=== PATIENT | male | born 1955 | race Caucasian/White ===

== ENCOUNTER 2023-07-05 18:50 | Inpatient (IN) | payer MEDICARE, MEDICAID ==
[~2023-07-05] VITALS: Ht 185.4 cm; Wt 78.3 kg
[~2023-07-05 18:50] MED LIST: ACET325T66 PO; ALBU8.5H17 IH; ALEN70TA80 PO; ASPI81TA49 PO; ATRO2DRO SL; BISA-155 PO; BISA10SU RC; CALC1CAP21 PO; CLOZ100T21 PO; DIVA500T4 PO; DOCU100C40 PO; FLUO-212 PO; FLUT12AE9 INH; GABA300C PO; LEVO88CA4 PO; LORA-268 PO; LOSA-416 PO; MAGN400O6 PO; MULT-1085 PO; NA P133E4 RC; NITR0.4T SL; PANT40TA54 PO; POLY17PO59 PO; SELE207S7 TOP; TRIH5TAB3 PO
[2023-07-05] MEDS ORDERED: normal saline 1000ML IV soln IV ONE (18:55)
[2023-07-05 19:18] LABS: EOSINOPHILS % (AUTO) 0 % (0-6); HEMOGLOBIN 10.4 g/dl (14.0-17.9); MEAN PLATELET VOLUME 7.6 FL (7.4-10.4); MONOCYTES # (AUTO) 1.9 X10'3 (0-0.9); NEUTROPHILS % (AUTO) 87.7 % (42-75); RED CELL DISTRIBUTION WIDTH 13.9 % (11.5-14.5)
[2023-07-05 19:19] LABS: BASOPHILS % (AUTO) 0 % (0-1); LYMPHOCYTES # (AUTO) 0.5 X10'3 (1.1-4.8); LYMPHOCYTES % (AUTO) 2.5 % (21-51); MEAN CORPUSCULAR HEMOGLOBIN 30.9 PG (27.0-31.0); MEAN CORPUSCULAR HGB CONC 34.7 g/dL (33.0-36.5); MEAN CORPUSCULAR VOLUME 89.2 FL (78-98); MONOCYTES % (AUTO) 9.8 % (2-12); NEUTROPHILS # (AUTO) 16.8 X10'3 (1.8-7.7); PLATELET COUNT 366 X10'3 (140-440); RED BLOOD COUNT 3.36 X10'6 (4.70-6.10); WHITE BLOOD COUNT 19.1 X10'3 (4.5-11.0)
[2023-07-05 19:36] LABS: ALANINE AMINOTRANSFERASE 33 U/L (12-78); ALBUMIN 2.8 G/DL (3.4-5.0); ALBUMIN/GLOBULIN RATIO 0.7 (1.1-1.5); ALKALINE PHOSPHATASE 82 IU/L (46-116); ANION GAP 11 (8-16); ASPARTATE AMINO TRANSFERASE 88 U/L (10-37); BILIRUBIN,TOTAL 0.4 MG/DL (0.1-1.0); BLOOD UREA NITROGEN 29 MG/DL (7-18); BUN/CREATININE RATIO 27.4 (10.0-20.0); CALCIUM 8.7 MG/DL (8.5-10.1); CHLORIDE 89 MMOL/L (99-107); CREATININE 1.06 MG/DL (0.60-1.10); GLUCOSE 106 MG/DL (70-104); MAGNESIUM 1.8 MG/DL (1.5-2.4); POTASSIUM 4.2 MMOL/L (3.5-5.1); SODIUM 123 MMOL/L (135-145); TOTAL CARBON DIOXIDE 23.5 MMOL/L (24-32); TOTAL PROTEIN 6.9 G/DL (6.4-8.2); eCRCL 73 ML/MIN; eGFR 70 ML/MIN
[2023-07-05 19:53] LABS: PLATELET ESTIMATE NORMAL; TOTAL CELLS COUNTED 100
[2023-07-05 19:54] LABS: BURR CELLS FEW; LARGE PLATELETS FEW; SCHISTOCYTES FEW; TOXIC GRANULATION 1+; TOXIC VACUOLATION 1+
[2023-07-05] MEDS ORDERED: azithromycin/NS 500mg/250ml 250 ML IV SCH (21:04)
[2023-07-05] MEDS ORDERED: CefTRIAXone 2gm/D5W 50ml BAG 50 ML IV ONE (21:05)
[2023-07-05 21:52] LABS: BILIRUBIN,URINE NEGATIVE (Neg); CLARITY,URINE CLEAR (Clear); COLOR,URINE YELLOW (Yellow); GLUCOSE, URINE NEGATIVE (Neg); KETONES,URINE 15 mg/dl (Neg); LEUKOCYTE ESTERASE ,URINE NEGATIVE (Neg); NITRITES, URINE NEGATIVE (Neg); OCCULT BLOOD,URINE NEGATIVE (Neg); PROTEIN,URINE NEGATIVE (Neg); UROBILINOGEN,URINE 0.2 E.U/dL (0.2-1.0)
[2023-07-05 21:54] LABS: UA COLLECTION TYPE URINAL
[2023-07-06] VITALS (9 sets, daily range): BP systolic 132–175; BP diastolic 68–95; PULSE 81–97; RESP 15–20; TEMP 97.6–97.8; O2SAT 95–99
[2023-07-06] MEDS ORDERED: diphenhydrAMINE 25mg capsule PO PRN (00:35)
[2023-07-06] MEDS ORDERED: ondansetron/PF 4mg/2ml inj IV PRN (00:35)
[2023-07-06] MEDS ORDERED: acetaminophen 650mg rectal suppository RC PRN (00:35)
[2023-07-06] MEDS ORDERED: HYDROcodone/acetaminophen 5mg/325mg tablet PO PRN (00:35)
[2023-07-06] MEDS ORDERED: bisacodyl 10mg suppository rectal RC PRN (00:35)
[2023-07-06] MEDS ORDERED: mag hydrox/Alum hydrox/simeth 30ml oral suspension PO PRN (00:35)
[2023-07-06] MEDS ORDERED: ipratropium/albuterol 3ml nebule NEB PRN (00:35)
[2023-07-06] MEDS: normal saline 1000ml 1,000 ML IV SCH ×3 (00:35→19:58)
[2023-07-06] MEDS ORDERED: ondansetron 4mg rapidly disintigrating tab PO PRN (00:35)
[2023-07-06] MEDS ORDERED: magnesium hydroxide 30ml (MOM) UD suspension PO PRN (00:35)
[2023-07-06] MEDS ORDERED: morphine 2 MG/ML inj. syringe IV PRN (00:35)
[2023-07-06] MEDS ORDERED: diphenhydrAMINE 50 mg/ml inj IV PRN (00:35)
[2023-07-06] MEDS ORDERED: acetaminophen 325mg tablet PO PRN ×2 (00:35)
[2023-07-06 01:43] LABS: APTT 38 SECONDS (22-32); D-DIMER 0.62 MG/L FEU (0-0.50); HEMOGLOBIN A1C 5.7 % (4.5-6.2); INR 1.1 INR; PROTHROMBIN TIME 11.7 SECONDS (9.0-12.0)
[2023-07-06 01:54] LABS: MAGNESIUM 1.9 MG/DL (1.5-2.4); PRO BRAIN NATRIURETIC PEPTIDE 851 PG/ML (0-125); VALPROATE 42 UG/ML (50-100)
[2023-07-06] MEDS: docusate sod 100mg capsule PO SCH ×2 (08:01→19:53)
[2023-07-06] MEDS: heparin, porcine 5000 units/ml vial SQ SCH ×2 (08:02→20:05)
[2023-07-06 10:04] LABS: ALBUMIN 2.7 G/DL (3.4-5.0); ANION GAP 12 (8-16); BLOOD UREA NITROGEN 15 MG/DL (7-18); BUN/CREATININE RATIO 16.7 (10.0-20.0); CALCIUM 8.3 MG/DL (8.5-10.1); CHLORIDE 95 MMOL/L (99-107); CHOL/HDL RATIO 2.2 (0.00-4.99); CHOLESTEROL 110 MG/DL (0-200); GLUCOSE 111 MG/DL (70-104); HDL CHOLESTEROL 49 MG/DL (35-60); LDL CHOLESTEROL 40 MG/DL (50-100); POTASSIUM 3.3 MMOL/L (3.5-5.1); SODIUM 129 MMOL/L (135-145); THYROID STIMULATING HORMONE 2.01 ulU/ml (0.34-4.50); TOTAL CARBON DIOXIDE 22.1 MMOL/L (24-32); TRIGLYCERIDES 47 MG/DL (20-135); eCRCL 89 ML/MIN; eGFR 84 ML/MIN
[2023-07-06 10:20] LABS: OSMOLALITY 268 MOSM/K (280-300)
[2023-07-06] MEDS ORDERED: ZOLP5TAB2 PO (14:37)
[2023-07-06] MEDS ORDERED: potassium Cl 40MEQ/1/2NS 520ml 520 ML IV PRN ×2 (20:20)
[2023-07-06] MEDS ORDERED: losartan 50mg tablet PO ONE (20:20)
[2023-07-06] MEDS ORDERED: potassium Cl 20 mEq SR tablet PO PRN ×2 (20:20)
[2023-07-06] MEDS ORDERED: magnesium 4gm in 100ml NS 100 ML IV PRN (20:25)
[2023-07-06] MEDS ORDERED: magnesium Cl slow-release 64mg tablet PO PRN (20:25)
[2023-07-06] MEDS ORDERED: magnesium 2GM in 50ml NS 50 ML IV PRN (20:25)
[2023-07-06] MEDS: CefTRIAXone/D5W-Rocephin 1gm 50 ML IV SCH (20:27)
[2023-07-06] MEDS ORDERED: temazepam 15mg capsule PO PRN (21:00)
[2023-07-06] MEDS: azithromycin/NS 500mg/250ml 250 ML IV SCH (22:36)
[2023-07-07] VITALS (13 sets, daily range): BP systolic 138–151; BP diastolic 78–86; PULSE 70–100; RESP 16–20; TEMP 97.1–98.2; O2SAT 95–100
[2023-07-07] MEDS ORDERED: bisacodyl 5mg tablet.DR PO PRN (05:35)
[2023-07-07] MEDS ORDERED: non-formulary drug (Alendronate Sodium 1 TAB) PO SCH (05:35)
[2023-07-07] MEDS ORDERED: bisacodyl 10mg suppository rectal RC PRN (05:35)
[2023-07-07] MEDS ORDERED: non-formulary drug (Na Phos,M-B/Na Phos,Di-Ba* (Fleet's Enema*) 1 BOTTLE) RC PRN (05:35)
[2023-07-07] MEDS ORDERED: albuterol 2.5 MG/3 ML nebule NEB PRN (05:45)
[2023-07-07] MEDS ORDERED: CLOZ50TA9 PO (06:06)
[2023-07-07 06:27] LABS: BASOPHILS % (AUTO) 0.3 % (0-1); EOSINOPHILS # (AUTO) 0.1 X10'3 (0-0.9); EOSINOPHILS % (AUTO) 0.5 % (0-6); HEMATOCRIT 32.7 % (42.0-52.0); LYMPHOCYTES # (AUTO) 1.1 X10'3 (1.1-4.8); MEAN CORPUSCULAR HEMOGLOBIN 30.4 PG (27.0-31.0); MEAN CORPUSCULAR HGB CONC 33.8 g/dL (33.0-36.5); MEAN PLATELET VOLUME 8.9 FL (7.4-10.4); MONOCYTES # (AUTO) 1.5 X10'3 (0-0.9); MONOCYTES % (AUTO) 12.4 % (2-12); NEUTROPHILS # (AUTO) 9.5 X10'3 (1.8-7.7); NEUTROPHILS % (AUTO) 77.8 % (42-75); PLATELET COUNT 406 X10'3 (140-440); RED BLOOD COUNT 3.63 X10'6 (4.70-6.10); WHITE BLOOD COUNT 12.2 X10'3 (4.5-11.0)
[2023-07-07 06:30] LABS: ALANINE AMINOTRANSFERASE 34 U/L (12-78); ALBUMIN 2.6 G/DL (3.4-5.0); ALBUMIN/GLOBULIN RATIO 0.6 (1.1-1.5); ALKALINE PHOSPHATASE 73 IU/L (46-116); ANION GAP 7 (8-16); ASPARTATE AMINO TRANSFERASE 61 U/L (10-37); BILIRUBIN,TOTAL 0.3 MG/DL (0.1-1.0); BLOOD UREA NITROGEN 10 MG/DL (7-18); BUN/CREATININE RATIO 14.1 (10.0-20.0); CALCIUM 8.6 MG/DL (8.5-10.1); CHLORIDE 98 MMOL/L (99-107); CHOL/HDL RATIO 2.8 (0.00-4.99); CHOLESTEROL 110 MG/DL (0-200); CREATININE 0.71 MG/DL (0.60-1.10); GLUCOSE 85 MG/DL (70-104); HDL CHOLESTEROL 39 MG/DL (35-60); LDL CHOLESTEROL 44 MG/DL (50-100); POTASSIUM 3.5 MMOL/L (3.5-5.1); SODIUM 130 MMOL/L (135-145); TOTAL CARBON DIOXIDE 25.3 MMOL/L (24-32); TOTAL PROTEIN 7.1 G/DL (6.4-8.2); TRIGLYCERIDES 71 MG/DL (20-135); eCRCL 113 ML/MIN; eGFR > 90 ML/MIN
[2023-07-07] MEDS: docusate sod 100mg capsule PO SCH ×4 (08:00→21:02)
[2023-07-07] MEDS ORDERED: non-formulary drug (Clozapine 1 TAB) PO SCH (08:00)
[2023-07-07] MEDS: polyethylene glycol 3350 17gm powd pack PO SCH (08:28)
[2023-07-07] MEDS: heparin, porcine 5000 units/ml vial SQ SCH ×2 (08:29→21:07)
[2023-07-07] MEDS: gabapentin 300mg capsule PO SCH ×2 (08:30→21:03)
[2023-07-07] MEDS: atropine sulfate 1% ophthalmic drops SL SCH ×2 (08:30→21:08)
[2023-07-07] MEDS: pantoprazole 40mg Tablet.DR PO SCH (08:30)
[2023-07-07] MEDS: multivitamins, therapeutics tablet PO SCH (08:30)
[2023-07-07] MEDS: clozapine 25mg tablet PO SCH ×2 (08:31→16:37)
[2023-07-07] MEDS: aspirin 81mg, enteric-coated 1 TAB TABLET.DR PO SCH (08:32)
[2023-07-07] MEDS: divalproex sod 250mg ER (24-hour) tablet PO SCH ×2 (08:33→21:06)
[2023-07-07] MEDS: trihexyphenidyl HCL 5 MG tablet PO SCH ×2 (08:33→21:08)
[2023-07-07] MEDS: losartan 50mg tablet PO SCH (08:54)
[2023-07-07] MEDS: levoTHYROXINE 88mcg tablet PO SCH (08:56)
[2023-07-07] MEDS: budesonide 0.5mg/2ml UD nebule IH SCH ×2 (09:28→20:21)
[2023-07-07] MEDS ORDERED: methylPREDNISolone sod succ 125mg/2ml vial IV ONE (10:15)
[2023-07-07] MEDS: normal saline 1000ml 1,000 ML IV SCH ×2 (10:15→16:35)
[2023-07-07] MEDS: ipratropium/albuterol 3ml nebule NEB SCH ×5 (12:37→23:47)
[2023-07-07] MEDS: FLUoxetine 20mg capsule PO SCH (21:02)
[2023-07-07] MEDS: clozapine 100mg tablet PO SCH (21:07)
[2023-07-07] MEDS: CefTRIAXone/D5W-Rocephin 1gm 50 ML IV SCH (22:29)
[2023-07-07] MEDS: methylPREDNISolone sod succ/PF 40mg inj. IV SCH (22:30)
[2023-07-07] MEDS: azithromycin/NS 500mg/250ml 250 ML IV SCH (22:36)
[2023-07-07] MEDS: LORazepam 0.5 MG tablet PO PRN (23:30)
[2023-07-08] VITALS (18 sets, daily range): BP systolic 134–159; BP diastolic 82–87; PULSE 68–89; RESP 16–20; TEMP 96.7–98.7; O2SAT 96–100
[2023-07-08] MEDS: zolpidem 5mg tablet PO PRN ×2 (01:06→21:13)
[2023-07-08] MEDS: ipratropium/albuterol 3ml nebule NEB SCH ×6 (03:39→23:05)
[2023-07-08 06:38] LABS: BASOPHILS % (AUTO) 0.3 % (0-1); EOSINOPHILS % (AUTO) 0 % (0-6); HEMATOCRIT 28.8 % (42.0-52.0); LYMPHOCYTES # (AUTO) 0.4 X10'3 (1.1-4.8); LYMPHOCYTES % (AUTO) 4.8 % (21-51); MEAN CORPUSCULAR HEMOGLOBIN 30.9 PG (27.0-31.0); MEAN CORPUSCULAR HGB CONC 34.6 g/dL (33.0-36.5); MEAN CORPUSCULAR VOLUME 89.3 FL (78-98); MEAN PLATELET VOLUME 8.2 FL (7.4-10.4); MONOCYTES # (AUTO) 0.3 X10'3 (0-0.9); MONOCYTES % (AUTO) 2.8 % (2-12); NEUTROPHILS # (AUTO) 8.5 X10'3 (1.8-7.7); NEUTROPHILS % (AUTO) 92.1 % (42-75); PLATELET COUNT 396 X10'3 (140-440); RED BLOOD COUNT 3.23 X10'6 (4.70-6.10); RED CELL DISTRIBUTION WIDTH 13.7 % (11.5-14.5); WHITE BLOOD COUNT 9.2 X10'3 (4.5-11.0)
[2023-07-08] MEDS: methylPREDNISolone sod succ/PF 40mg inj. IV SCH ×2 (06:51→19:29)
[2023-07-08] MEDS: levoTHYROXINE 88mcg tablet PO SCH (07:04)
[2023-07-08 07:17] LABS: ALANINE AMINOTRANSFERASE 35 U/L (12-78); ALBUMIN 2.2 G/DL (3.4-5.0); ALBUMIN/GLOBULIN RATIO 0.5 (1.1-1.5); ALKALINE PHOSPHATASE 68 IU/L (46-116); ANION GAP 8 (8-16); ASPARTATE AMINO TRANSFERASE 26 U/L (10-37); BILIRUBIN,TOTAL 0.2 MG/DL (0.1-1.0); BLOOD UREA NITROGEN 10 MG/DL (7-18); BUN/CREATININE RATIO 17.9 (10.0-20.0); CALCIUM 8.4 MG/DL (8.5-10.1); CHLORIDE 97 MMOL/L (99-107); CREATININE 0.56 MG/DL (0.60-1.10); GLUCOSE 168 MG/DL (70-104); POTASSIUM 3.9 MMOL/L (3.5-5.1); SODIUM 128 MMOL/L (135-145); TOTAL CARBON DIOXIDE 22.7 MMOL/L (24-32); TOTAL PROTEIN 6.4 G/DL (6.4-8.2); eCRCL 144 ML/MIN; eGFR > 90 ML/MIN
[2023-07-08] MEDS: budesonide 0.5mg/2ml UD nebule IH SCH ×2 (07:37→20:29)
[2023-07-08] MEDS: aspirin 81mg, enteric-coated 1 TAB TABLET.DR PO SCH (07:59)
[2023-07-08] MEDS: polyethylene glycol 3350 17gm powd pack PO SCH (07:59)
[2023-07-08] MEDS: pantoprazole 40mg Tablet.DR PO SCH (08:00)
[2023-07-08] MEDS: docusate sod 100mg capsule PO SCH ×4 (08:00→20:00)
[2023-07-08] MEDS: multivitamins, therapeutics tablet PO SCH (08:01)
[2023-07-08] MEDS: losartan 50mg tablet PO SCH (08:01)
[2023-07-08] MEDS: gabapentin 300mg capsule PO SCH ×2 (08:02→20:26)
[2023-07-08] MEDS: divalproex sod 250mg ER (24-hour) tablet PO SCH ×2 (08:02→20:27)
[2023-07-08] MEDS: heparin, porcine 5000 units/ml vial SQ SCH ×2 (08:02→19:29)
[2023-07-08] MEDS: trihexyphenidyl HCL 5 MG tablet PO SCH ×2 (08:02→19:29)
[2023-07-08] MEDS: clozapine 25mg tablet PO SCH ×2 (08:03→17:15)
[2023-07-08] MEDS: atropine sulfate 1% ophthalmic drops SL SCH ×2 (08:06→19:29)
[2023-07-08] MEDS: clozapine 100mg tablet PO SCH (20:26)
[2023-07-08] MEDS: CefTRIAXone/D5W-Rocephin 1gm 50 ML IV SCH (20:26)
[2023-07-08] MEDS: FLUoxetine 20mg capsule PO SCH (20:26)
[2023-07-08] MEDS: azithromycin/NS 500mg/250ml 250 ML IV SCH (21:17)
[2023-07-09] VITALS (7 sets, daily range): BP systolic 121; PULSE 77–88; RESP 13–20; O2SAT 96–98
[2023-07-09] MEDS: LORazepam 0.5 MG tablet PO PRN (00:16)
[2023-07-09] MEDS: ipratropium/albuterol 3ml nebule NEB SCH ×3 (03:19→11:00)
[2023-07-09] MEDS: normal saline 1000ml 1,000 ML IV SCH (06:43)
[2023-07-09] MEDS: budesonide 0.5mg/2ml UD nebule IH SCH (07:12)
[2023-07-09 07:32] LABS: BASOPHILS # (AUTO) 0.1 X10'3 (0-0.2); BASOPHILS % (AUTO) 0.5 % (0-1); EOSINOPHILS % (AUTO) 0.1 % (0-6); HEMATOCRIT 28.3 % (42.0-52.0); HEMOGLOBIN 9.6 g/dl (14.0-17.9); LYMPHOCYTES # (AUTO) 1.5 X10'3 (1.1-4.8); LYMPHOCYTES % (AUTO) 5.9 % (21-51); MEAN CORPUSCULAR HEMOGLOBIN 30.2 PG (27.0-31.0); MEAN CORPUSCULAR HGB CONC 33.8 g/dL (33.0-36.5); MEAN CORPUSCULAR VOLUME 89.5 FL (78-98); MEAN PLATELET VOLUME 8.4 FL (7.4-10.4); MONOCYTES # (AUTO) 1.6 X10'3 (0-0.9); NEUTROPHILS # (AUTO) 22.4 X10'3 (1.8-7.7); NEUTROPHILS % (AUTO) 87.5 % (42-75); PLATELET COUNT 464 X10'3 (140-440); RED BLOOD COUNT 3.16 X10'6 (4.70-6.10); RED CELL DISTRIBUTION WIDTH 14.1 % (11.5-14.5)
[2023-07-09 07:48] LABS: WHITE BLOOD COUNT 25.7 X10'3 (4.5-11.0)
[2023-07-09] MEDS: atropine sulfate 1% ophthalmic drops SL SCH (08:00)
[2023-07-09] MEDS: heparin, porcine 5000 units/ml vial SQ SCH (08:00)
[2023-07-09] MEDS: docusate sod 100mg capsule PO SCH ×2 (08:00→09:06)
[2023-07-09 08:10] LABS: ALANINE AMINOTRANSFERASE 35 U/L (12-78); ALBUMIN 2.3 G/DL (3.4-5.0); ALBUMIN/GLOBULIN RATIO 0.6 (1.1-1.5); ALKALINE PHOSPHATASE 62 IU/L (46-116); ANION GAP 7 (8-16); ASPARTATE AMINO TRANSFERASE 24 U/L (10-37); BILIRUBIN,TOTAL 0.2 MG/DL (0.1-1.0); BLOOD UREA NITROGEN 14 MG/DL (7-18); CALCIUM 8.9 MG/DL (8.5-10.1); CHLORIDE 98 MMOL/L (99-107); GLUCOSE 130 MG/DL (70-104); POTASSIUM 4.3 MMOL/L (3.5-5.1); SODIUM 131 MMOL/L (135-145); TOTAL CARBON DIOXIDE 25.8 MMOL/L (24-32); TOTAL PROTEIN 6.3 G/DL (6.4-8.2); eCRCL 115 ML/MIN; eGFR > 90 ML/MIN
[2023-07-09 08:32] LABS: PLATELET ESTIMATE INCREASED; TOTAL CELLS COUNTED 100
[2023-07-09] MEDS: aspirin 81mg, enteric-coated 1 TAB TABLET.DR PO SCH (09:05)
[2023-07-09] MEDS: losartan 50mg tablet PO SCH (09:05)
[2023-07-09] MEDS: clozapine 25mg tablet PO SCH (09:05)
[2023-07-09] MEDS: pantoprazole 40mg Tablet.DR PO SCH (09:06)
[2023-07-09] MEDS: polyethylene glycol 3350 17gm powd pack PO SCH (09:06)
[2023-07-09] MEDS: multivitamins, therapeutics tablet PO SCH (09:06)
[2023-07-09] MEDS: gabapentin 300mg capsule PO SCH (09:06)
[2023-07-09] MEDS: trihexyphenidyl HCL 5 MG tablet PO SCH (09:06)
[2023-07-09] MEDS: divalproex sod 250mg ER (24-hour) tablet PO SCH (09:07)
[2023-07-09] MEDS: levoTHYROXINE 88mcg tablet PO SCH (09:08)
[2023-07-09] MEDS: methylPREDNISolone sod succ/PF 40mg inj. IV SCH (10:21)
[2023-07-09] MEDS ORDERED: BUDE10.22 INH (14:40)
[2023-07-09] MEDS ORDERED: LACT1CAP26 PO (14:40)
[2023-07-09] MEDS ORDERED: CEFD300C3 PO (14:40)
[2023-07-09] MEDS ORDERED: PRED10TA23 PO (14:40)
[2023-07-09] MEDS ORDERED: azithromycin 250mg tablet PO SCH (21:00)
== END 2023-07-09 14:00 | DRG 871 ==
LOC: ER 18:50 → ED HOLD 07-06 00:39 → ORTHO 4S 07-06 15:02
PROVIDERS: ADMIT Family Medicine; ATTEND Family Medicine
DX: A41.9 Sepsis, unspecified organism (principal); G93.41 Metabolic encephalopathy; J18.9 Pneumonia, unspecified organism; E87.1 Hypo-osmolality and hyponatremia; J44.0 Chronic obstructive pulmonary disease with (acute) lower respiratory infection; I13.0 Hypertensive heart and chronic kidney disease with heart failure and stage 1 through stage 4 chronic kidney disease, or unspecified chronic kidney disease; J44.1 Chronic obstructive pulmonary disease with (acute) exacerbation; E86.1 Hypovolemia; F20.9 Schizophrenia, unspecified; E03.9 Hypothyroidism, unspecified; K21.9 Gastro-esophageal reflux disease without esophagitis; I50.9 Heart failure, unspecified; R26.9 Unspecified abnormalities of gait and mobility; Z20.822 Contact with and (suspected) exposure to COVID-19; N18.9 Chronic kidney disease, unspecified; R29.6 Repeated falls; D72.829 Elevated white blood cell count, unspecified; T38.0X5A Adverse effect of glucocorticoids and synthetic analogues, initial encounter; Y92.89 Other specified places as the place of occurrence of the external cause; Z79.899 Other long term (current) drug therapy; Z79.82 Long term (current) use of aspirin; Z88.1 Allergy status to other antibiotic agents; Z87.01 Personal history of pneumonia (recurrent)
CPT/HCPCS: 36415; 70450; 71045; 74176; 80048; 80053; 80061; 80164; 81003; 83036; 83605; 83735; 83880; 83930; 84145; 84443; 84484; 85007; 85025; 85379; 85610; 85730; 87040; 87081; 87811; 93005; 93306; 94640; 94760; 96365; 96367; 97116; 97161; 97530; 99285; G0378; J0456; J0696; J1644; J2920; J2930; J7030

== ENCOUNTER 2023-10-07 11:20 | Emergency (ER) | payer MEDICARE, MEDICAID ==
[~2023-10-07] VITALS: Ht 180.3 cm; Wt 69.8 kg
[~2023-10-07 11:20] MED LIST changes: +BUDE10.22 INH; +CLOZ50TA9 PO; -FLUT12AE9 INH; +LACT1CAP26 PO; +ZOLP5TAB2 PO
[2023-10-07 11:43] VITALS: TEMP 98.2
[2023-10-07 12:15] LABS: BASOPHILS # (AUTO) 0.1 X10'3 (0-0.2); BASOPHILS % (AUTO) 1.1 % (0-1); EOSINOPHILS # (AUTO) 0.4 X10'3 (0-0.9); EOSINOPHILS % (AUTO) 4.9 % (0-6); HEMATOCRIT 38.9 % (42.0-52.0); HEMOGLOBIN 13.1 g/dl (14.0-17.9); LYMPHOCYTES # (AUTO) 1.4 X10'3 (1.1-4.8); LYMPHOCYTES % (AUTO) 16.5 % (21-51); MEAN CORPUSCULAR HEMOGLOBIN 29.6 PG (27.0-31.0); MEAN CORPUSCULAR HGB CONC 33.8 g/dL (33.0-36.5); MEAN CORPUSCULAR VOLUME 87.8 FL (78-98); MEAN PLATELET VOLUME 7.5 FL (7.4-10.4); MONOCYTES # (AUTO) 0.9 X10'3 (0-0.9); MONOCYTES % (AUTO) 10.4 % (2-12); NEUTROPHILS # (AUTO) 5.9 X10'3 (1.8-7.7); NEUTROPHILS % (AUTO) 67.1 % (42-75); PLATELET COUNT 416 X10'3 (140-440); RED BLOOD COUNT 4.43 X10'6 (4.70-6.10); RED CELL DISTRIBUTION WIDTH 15.7 % (11.5-14.5); WHITE BLOOD COUNT 8.8 X10'3 (4.5-11.0)
[2023-10-07 12:40] LABS: ALANINE AMINOTRANSFERASE 18 U/L (12-78); ALBUMIN 3.5 G/DL (3.4-5.0); ALBUMIN/GLOBULIN RATIO 0.8 (1.1-1.5); ALKALINE PHOSPHATASE 65 IU/L (46-116); ANION GAP 9 (8-16); ASPARTATE AMINO TRANSFERASE 19 U/L (10-37); BILIRUBIN,DIRECT 0.2 MG/DL (0-0.3); BILIRUBIN,TOTAL 0.3 MG/DL (0.1-1.0); BLOOD UREA NITROGEN 13 MG/DL (7-18); BUN/CREATININE RATIO 17.6 (10.0-20.0); C-REACTIVE PROTEIN 2.45 MG/DL (0.0-0.5); CALCIUM 9.1 MG/DL (8.5-10.1); CHLORIDE 96 MMOL/L (99-107); CREATININE 0.74 MG/DL (0.60-1.10); GLUCOSE 90 MG/DL (70-104); POTASSIUM 4.4 MMOL/L (3.5-5.1); PRO BRAIN NATRIURETIC PEPTIDE 210 PG/ML (0-125); SODIUM 132 MMOL/L (135-145); TOTAL CARBON DIOXIDE 26.8 MMOL/L (24-32); TOTAL PROTEIN 7.9 G/DL (6.4-8.2); eCRCL 97 ML/MIN; eGFR > 90 ML/MIN
[2023-10-07] MEDS: ipratropium/albuterol 3ml nebule NEB PRN (12:51)
[2023-10-07 12:55] VITALS: PULSE 79; RESP 15; O2SAT 98
[2023-10-07 13:01] VITALS: PULSE 73; RESP 16; O2SAT 100
[2023-10-07] MEDS: methylPREDNISolone sod succ 125mg/2ml vial IV ONE (13:05)
[2023-10-07 14:19] LABS: BILIRUBIN,URINE NEGATIVE (Neg); CLARITY,URINE CLEAR (Clear); COLOR,URINE YELLOW (Yellow); GLUCOSE, URINE NEGATIVE (Neg); KETONES,URINE NEGATIVE (Neg); LEUKOCYTE ESTERASE ,URINE NEGATIVE (Neg); NITRITES, URINE NEGATIVE (Neg); OCCULT BLOOD,URINE NEGATIVE (Neg); PH,URINE 8.5 (4.8-8.0); PROTEIN,URINE NEGATIVE (Neg); UROBILINOGEN,URINE 0.2 E.U/dL (0.2-1.0)
[2023-10-07 14:21] LABS: UA COLLECTION TYPE URINAL
[2023-10-07] MEDS ORDERED: ALBU18HF2 INH (15:55)
[2023-10-07] MEDS ORDERED: PRED20TA PO (15:55)
[2023-10-07] MEDS ORDERED: AZIT250T83 PO (15:55)
[2023-10-07] MEDS ORDERED: GUAI600T45 PO (15:55)
[2023-10-07 16:44] VITALS: PULSE 89; RESP 16; O2SAT 100
[2023-10-07] MEDS: ipratropium/albuterol 3ml nebule NEB ONE (16:44)
[2023-10-07 16:54] VITALS: PULSE 89; RESP 16
[2023-10-07 19:32] VITALS: BP 169/98; PULSE 99; RESP 18; O2SAT 100
== END 2023-10-07 19:06 | disposition home or self-care (01) ==
LOC: ER 11:21
DX: J44.1 Chronic obstructive pulmonary disease with (acute) exacerbation (principal); Z20.822 Contact with and (suspected) exposure to COVID-19; I10 Essential (primary) hypertension; E03.9 Hypothyroidism, unspecified; Z88.8 Allergy status to other drugs, medicaments and biological substances; Z79.899 Other long term (current) drug therapy; Z79.82 Long term (current) use of aspirin
CPT/HCPCS: 36415; 71045; 80048; 80076; 81003; 83605; 83880; 84145; 84484; 85025; 86140; 87040; 87502; 87503; 87634; 87811; 93005; 94640; 96374; 99285; J2930; 94760